=== PATIENT | female | born 1990 | race Caucasian/White ===

== ENCOUNTER → 2019-04-19 | Outpatient (CLI) | payer MEDICAID | LOC: COL.RAD 10:17 | DX: M48.07 Spinal stenosis, lumbosacral region (principal); M46.96 Unspecified inflammatory spondylopathy, lumbar region; M54.41 Lumbago with sciatica, right side ==

== ENCOUNTER 2019-04-28 07:05 | Emergency (ER) | payer MEDICAID ==
[~2019-04-28] VITALS: Ht 157.5 cm; Wt 77.3 kg
[2019-04-28 07:38] LABS: COLLECTION METHOD CLEAN CATCH
[2019-04-28 07:45] LABS: MUCOUS Present /lpf; PH 5 (5-8); SQUAMOUS EPITHELIAL 0-2 /hpf; URINE APPEARANCE Clear; URINE BACTERIA Rare /hpf; URINE BILIRUBIN Negative (NEGATIVE); URINE BLOOD 1+ (NEGATIVE); URINE COLOR Yellow; URINE GLUCOSE Negative (NEGATIVE); URINE KETONE Negative (NEGATIVE); URINE LEUKOCYTE ESTERASE Negative (NEGATIVE); URINE NITRATE Negative (NEGATIVE); URINE PROTEIN(semi-quant) Negative (NEGATIVE); URINE UROBILINOGEN Negative (NEGATIVE)
[2019-04-28 08:45] VITALS: TEMP 98.2
[2019-04-28] MEDS ORDERED: ZOFRAN ODT4 MG PO (09:43)
[2019-04-28 10:10] VITALS: BP 102/70; PULSE 100
== END 2019-04-28 10:10 | disposition home or self-care (01) ==
LOC: COL.ER 07:05
PROVIDERS: Emergency Medicine
DX: K52.9 Noninfective gastroenteritis and colitis, unspecified (principal)
CPT/HCPCS: J2405; J7030

== ENCOUNTER 2019-06-04 09:07 | Emergency (ER) | payer MEDICAID ==
[~2019-06-04] VITALS: Ht 157.5 cm; Wt 77.3 kg
[~2019-06-04 09:07] MED LIST: ZOFRAN ODT4 MG PO
[2019-06-04 09:09] VITALS: BP 133/85; TEMP 98.2
[2019-06-04] MEDS ORDERED: ZOFRAN ODT8 MG PO (09:43)
[2019-06-04] MEDS ORDERED: TAMIFLU 75MG75 MG PO (11:03)
[2019-06-04 11:38] VITALS: PULSE 86
== END 2019-06-04 11:38 | disposition home or self-care (01) ==
LOC: COL.ER 09:07
PROVIDERS: Emergency Medicine
DX: J11.1 Influenza due to unidentified influenza virus with other respiratory manifestations (principal); R19.7 Diarrhea, unspecified; R11.2 Nausea with vomiting, unspecified
CPT/HCPCS: C9113; J1885; J2405; J7030

== ENCOUNTER 2019-08-06 10:00 | Outpatient (RCR) | payer MEDICAID ==
[~2019-08-06 10:00] MED LIST changes: +TAMIFLU 75MG75 MG PO; +ZOFRAN ODT8 MG PO
== END 2019-10-10 | disposition still patient (30) ==
LOC: WSC
DX: M25.551 Pain in right hip (principal); M54.5 Low back pain; G89.29 Other chronic pain